=== PATIENT | male | born 2000 | race Caucasian/White ===

== ENCOUNTER 2022-05-04 21:32 | Emergency (ER) | payer OTHER ==
[~2022-05-04] VITALS: Ht 182.9 cm; Wt 136.1 kg
[2022-05-05] MEDS ORDERED: OXYCODONE/APAP 5-325 MG TABLET PO ONE (00:45)
[2022-05-05] MEDS ORDERED: OXYCODONE/APAP 5-325 MG TABLET ONE (00:49)
--- NOTE | 2022-05-05 01:30 | NUR ---
Patient placed in room 2a at this time due to no beds available in the ER.
[2022-05-05] MEDS ORDERED: LIDOCAINE 1%-EPI 1:100,000 20 ML VIAL ONE (02:05)
[2022-05-05 02:15] LABS: HEMATOCRIT 41.1 % (36.7-47.1); MEAN CORPUSCULAR HEMOGLOBIN 29.7 uug (23.8-33.4); MEAN CORPUSCULAR VOLUME 87.2 fL (73.0-96.2); PLATELET COUNT (AUTO) 486 K/uL (152-348)
[2022-05-05] MEDS ORDERED: LIDOCAINE 2%-EPI 1:100,000 20 ML VIAL IJ ONE (02:15)
[2022-05-05 02:22] LABS: CREATININE 1.1 mg/dL (0.6-1.3); POTASSIUM 4.1 mmol/L (3.5-5.1)
[2022-05-05 02:28] LABS: BILIRUBIN,DIRECT 0.2 mg/dL (0.0-0.2); BILIRUBIN,TOTAL 0.8 mg/dL (0.2-1.0); TOTAL PROTEIN, SERUM 8.2 g/dL (6.4-8.2)
[2022-05-05] MEDS ORDERED: SULFAMETH/TRIMETH 800/160 MG TABLET PO ONE (02:30)
[2022-05-05] MEDS ORDERED: SULFAMETH/TRIMETH 800/160 MG TABLET ONE (02:36)
[2022-05-05] MEDS ORDERED: OXYC-128 PO (02:44)
[2022-05-05] MEDS ORDERED: SULF1TAB48 PO (02:44)
--- NOTE | 2022-05-05 04:07 | NUR ---
Patient discharged to home in stable condition. Written and verbal after care instructions given. Patient verbalizes understanding of instructions. Stressed follow up or return to ER for worsening s/s.
[2022-05-05 04:08] VITALS: BP 148/90
== END 2022-05-05 04:09 | disposition home or self-care (01) ==
LOC: ER 21:40
DX: E08.69 Diabetes mellitus due to underlying condition with other specified complication (principal); L05.01 Pilonidal cyst with abscess; R73.03 Prediabetes; R00.0 Tachycardia, unspecified; E66.9 Obesity, unspecified; Z68.39 Body mass index [BMI] 39.0-39.9, adult; I10 Essential (primary) hypertension
CPT/HCPCS: 10080; 99284; 80076; 80048; 83036; 83735; 85025; 87070; 36415; J3490; A4663